=== PATIENT | male | born 2000 | race Caucasian/White ===

== ENCOUNTER 2019-07-12 13:05 | Emergency (ER) | payer OTHER, BC, SELFPAY ==
--- NOTE | 2019-07-12 13:05 | RAD_ITS ---
STUDY: X-RAY - RIGHT TIBIA AND FIBULA REASON FOR EXAM: Male, 18 years old. PAIN/BRUISE TO MID/DISTAL TIB/FIB. CRUSH TYPE INJURY TECHNIQUE: 2 view(s) of the tibia and fibula were obtained. COMPARISON: Comparison is made with prior study January 27, 2016. FINDINGS: Normal visualized tibia. Normal visualized fibula. Soft tissue swelling. RAD/Tibia & Fibula 2 Views IMPRESSION: Soft tissue swelling. Electronically Signed: Herberth Magana, at 14:08 EDT , Service support ,
--- NOTE | 2019-07-12 13:06 | ED.DCSUM_ITS ---
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 He was t ransported with a vacuum splint. Past Medical History Primary Care Physician: María Elena Mcelroy MD [STAFF PHYSICIAN] - Review of Systems General: Denies: Chills, Fever, Sweats Eyes: Denies: Visual changes - bilaterally, Diplopia ENT: Denies: Rhinorrhea, Sore throat Cardiovascular: Denies: Chest pain, Palpitations Respiratory: Denies: Dyspnea, Cough, Dyspnea on exertion Gastrointestinal: Denies: Abdominal pain, Nausea, Vomiting, Diarrhea, Melena, Hematochezia Genitourinary: Denies: Dysuria, Hematuria, Frequency Musculoskeletal: Denies: Back pain, Extremity Pain Skin: Denies: Rash, Wounds Neurological: Denies: Headache, Weakness, Numbness Physical Exam Inital Vital Signs reviewed: Yes General: Well nourished, Well developed, No Acute Distress Head: Normocephalic, Atraumatic Eyes: Perrl, EOMI ENT: Moist mucous membranes, No rhinorrhea Neck: Supple, Nontender Cardiovascular: Regular rate, Regular rhythm, No murmurs Respiratory: No distress, CTA bilaterally, Chest nontender Abdomen: Soft, Nontender, Nondistended, Normal bowel sounds Back: Nontender, Normal Inspection Extremities: No edema, Tenderness, - - There is hematoma over the medial anterior right mid brooks. Tender to palpation. Neurovascular intact distal. Skin: Normal color, No rash Neurological: Alert, Oriented x3, Cranial nerves II-XII grossly intact, Normal Strength, Normal Sensation Psychological: Normal affect, Normal Mood Diagnostic/Tx/Re-eval - Medical Decision Making X-rays of the leg were negative for fracture. Patient received Motrin. We will have him use crutches until he is able to bear weight more comfortably. Follow- [facility] with the [facility]. ED Disposition - Plan for ED Patient: Disposition: Home or Assisted Living Diagnosis: Hematoma of right lower extremity Instructions: Hematoma Referrals: [facility] [NON-STAFF] - 3-5 Days
[2019-07-12 13:07] VITALS: BP 143/81; PULSE 67; RESP 16; TEMP 36.6; O2SAT 99; BMI 25.0
[2019-07-12] MEDS: Ibuprofen 400 MG Tablet 800 MG PO (14:21)
[2019-07-12 14:25] VITALS: BP 135/66
== END 2019-07-12 14:26 | disposition home or self-care (01) ==
PROVIDERS: Emergency Provider Emergency Medicine; PCP Nurse Practitioner Family
DX: S80.11XA Contusion of right lower leg, initial encounter (principal); W22.8XXA Striking against or struck by other objects, initial encounter; Y93.89 Activity, other specified; Y92.9 Unspecified place or not applicable; Y99.0 Civilian activity done for income or pay
CPT/HCPCS: 73590; 99285